=== PATIENT | male | born 1975 | race Hispanic/Latino ===

== ENCOUNTER 2020-06-20 18:23 | Emergency (ER) | payer BC ==
[~2020-06-20] VITALS: Ht 170.2 cm; Wt 103.2 kg
[2020-06-20] MEDS ORDERED: LISINOPRIL10 MG PO (18:51)
[2020-06-20] MEDS ORDERED: SIMVASTATIN40 MG PO (18:51)
[2020-06-20] MEDS ORDERED: METFORMIN HCL500 MG PO (18:51)
[2020-06-20] MEDS ORDERED: HYDROCODONE/APAP 5MG-325MG TAB PO ONE (19:15)
[2020-06-20] MEDS ORDERED: CLONIDINE HCL 0.1 MG TAB PO ONE (20:00)
[2020-06-20] MEDS ORDERED: CEFAZOLIN SOD 1 GM VIAL IM ONE (20:00)
[2020-06-20] MEDS ORDERED: CLONIDINE HCL 0.1 MG TAB ONE (20:02)
[2020-06-20] MEDS ORDERED: CEFAZOLIN SOD 1 GM VIAL ONE (20:03)
[2020-06-20] MEDS ORDERED: HYDROCODON-ACE1 EAC9 PO (20:43)
[2020-06-20] MEDS ORDERED: CEPHALEXIN500 MG PO (20:46)
== END 2020-06-20 21:11 | disposition home or self-care (01) ==
LOC: FSED 18:45
DX: S61.312A Laceration without foreign body of right middle finger with damage to nail, initial encounter (principal); W29.3XXA Contact with powered garden and outdoor hand tools and machinery, initial encounter; Y92.008 Other place in unspecified non-institutional (private) residence as the place of occurrence of the external cause; I10 Essential (primary) hypertension; E11.9 Type 2 diabetes mellitus without complications; E78.5 Hyperlipidemia, unspecified
CPT/HCPCS: 73140; 99283; J0690